=== PATIENT | male | born 2000 | race American Indian/Alaskan Native ===

== ENCOUNTER 2019-04-03 21:53 | Emergency (ER) | payer OTHER ==
[2019-04-04] MEDS ORDERED: LET TOPICAL (LIDOCAINE/EPINEPHRINE/TETRACAINE) 3 ML TP ONE (03:47)
[2019-04-04] MEDS ORDERED: LIDOCAINE-MPF (1%) 10 MG/1 ML VIAL 5 ML INFILTRATI ONE (03:47)
[2019-04-04] MEDS ORDERED: TETANUS,DIPH,PERTUSS(ACELL) VACCINE 0.5 ML SYRINGE IM ONE (03:47)
[2019-04-04] MEDS ORDERED: SODIUM CHLORIDE 0.9% 1000 ML 1,000 ML IV ONE (03:47)
--- NOTE | 2019-04-04 04:20 | Cat Scan Report ---
Examination: CT of the head without contrast Clinical information: Syncope. Fall. Comparison: None Technical: Multiple axial CT images of the head were obtained without intravenous contrast. Sagittal and coronal reformats were obtained. All CTs at this facility utilize dose reduction techniques inc luding automated exposure control, iterative reconstruction and weight based dosing when appropriate to reduce patient radiation dose to as low as reasonable achievable. Findings: There is no CT evidence of acute intracranial hemorrhage or large territorial infarct. The ventricular system is normal in size. No extra-axial fluid collections are identified. Evaluation of the calvarium demonstrates no evidence of acute bony abnormality. There is minimal muco taqueria thickening of ethmoid air cells. Impression: 1. No CT evidence of acute intracranial process. Signer Name: Nicki Avila MD Signed: 04/04/2019 4:16 AM Workstation Name: [email or web address]
[2019-04-04 04:30] LABS: Basophils % (Auto) 0.3 % (0.0-1.8); Eosinophils % (Auto) 0.3 % (0.0-4.3); Hematocrit 46.3 % (35.5-45.6); Hemoglobin 15.7 gm/dl (11.8-15.2); Lymphocytes # (Auto) 1.9 K/mm3 (1.2-5.4); Lymphocytes % (Auto) 24.2 % (13.4-35.0); Mean Corpuscular HGB Conc 34 % (32-34); Mean Corpuscular Volume 89 fl (84-94); Monocytes # (Auto) 0.6 K/mm3 (0.0-0.8); Monocytes % (Auto) 7.4 % (0.0-7.3); Platelet Count 188 K/mm3 (140-440); Red Blood Count 5.23 M/mm3 (3.65-5.03); Red Cell Distribution Width 13.2 % (13.2-15.2)
--- NOTE | 2019-04-04 04:31 | XRay Report ---
CHEST 2 VIEWS, 04/04/2019 4:08 AM INDICATION: Syncope COMPARISON: None FINDINGS: Support devices: None Heart: Cardiac silhouette is normal in size. Lungs/pleura: The lungs are well expanded and appear clear. Additional findings: Evaluation of bony structures demonstrates no evidence of acute bony abnormality . IMPRESSION: 1. No evidence of acute cardiopulmonary process. Signer Name: Nicki Avila MD Signed: 04/04/2019 4:26 AM Workstation Name: [email or web address]
[2019-04-04 04:46] LABS: Alanine Aminotransferase 15 units/L (7-56); Albumin 4.7 g/dL (3.9-5); BUN/Creatinine Ratio 16; Blood Urea Nitrogen 13 mg/dL (9-20); Hemolysis Index 13
--- NOTE | 2019-04-04 06:20 | Emergency Department Report ---
ED General Adult HPI - General Chief complaint: Syncope Stated complaint: LACERATION ABOVE RT EYE Source: patient Mode of arrival: Ambulatory Limitations: No Limitations - History of Present Illness Initial comments: Patient is a 19-year-old [place] male with no past medical history presents to the ED with content of acute onset persistent severe headache and a bleeding right supraorbital laceration after he developed acute onset single syncope episode about 4 hours ago. Patient states that he was standing at the kitchen table when he suddenly developed acute onset severe diffuse sharp abdominal pain, which startled him and he started walking to was the couch but syncopized on his way to the couch and in the process hit his head against the edge of the coffee table about 4 hours ago. Patient states that the syncope event was observed by the family members who also reiterate that the patient had a brief loss of consciousness but regained his level consciousness immediately after the syncope event. The family states that the patient did not have any urinary inco ntinence during the syncope event. Patient denies nausea, vomiting, dizziness, chest pain, shortness of breath, fever, chills, vision loss, numbness and tingling or weakness of upper and lower extremities bilaterally, diarrhea, or neck pain. MD Complaint: right supraorbital bleeding laceration; lightheadedness; syncope; headache -: Sudden, hour(s) (3) Location: face Radiation: non-radiation Severity scale (0 -10): 4 Quality: aching, sharp Consistency: constant Improves with: none Worsens with: none Associated Symptoms: denies other symptoms, headaches, syncope. denies: confusion, chest pain, cough, diaphoresis, fever/chills, loss of appetite, malaise, nausea/vomiting, rash, seizure, shortness of breath, other Treatments Prior to Arrival: none - Related Data Previous Rx's Medication Instructions Recorded Last Taken Type Ibuprofen [Motrin] 600 mg PO Q8H PRN #24 tablet 04/04/19 Unknown Rx Sulfamethoxazole/Trimethoprim 1 each PO Q12H #20 tablet 04/04/19 Unknown Rx [Bactrim DS TAB] Allergies Allergy/AdvReac Type Severity Reaction Status Date / Time No Known Allergies Allergy Unverified 04/03/19 23:10 ED Review of Systems ROS: Stated complaint: LACERATION ABOVE RT EYE Other details as noted in HPI Constitutional: malaise. denies: chills, fever Eyes: other (right supraorbital bleeding laceration). denies: eye pain, eye d ischarge, vision change ENT: denies: ear pain, throat pain Respiratory: denies: cough, shortness of breath, wheezing Cardiovascular: denies: chest pain, palpitations Endocrine: no symptoms reported Gastrointestinal: denies: abdominal pain, nausea, diarrhea Genitourinary: denies: urgency, dysuria Musculoskeletal: denies: back pain, joint swelling, arthralgia Skin: other (right supraorbital bleeding laceration). denies: rash, lesions Neurological: headache. denies: weakness, paresthesias Psychiatric: denies: anxiety, depression Hematological/Lymphatic: denies: easy bleeding, easy bruising ED Past Medical Hx - Past Medical History Previous Medical History?: No - Medications Home Medications: Home Medications Medication Instructions Recorded Confirmed Last Taken Type Ibuprofen [Motrin] 600 mg PO Q8H PRN #24 tablet 04/04/19 Unknown Rx Sulfamethoxazole/Trimethoprim 1 each PO Q12H #20 tablet 04/04/19 Unknown Rx [Bactrim DS TAB] ED Physical Exam - General Limitations: No Limitations General appearance: alert, in no apparent distress - Head Head exam: Present: other (bleeding right supraorbital 4 cm laceration) - Eye Eye exam: Present: normal appearance, PERRL, EOMI, other (right supraorbital bleeding 4 cm laceration) Pupils: Present: normal accommodation - ENT ENT exam: Present: normal exam, normal orophraynx, mucous membranes moist, TM's normal bilaterally, normal external ear exam - Neck Neck exam: Present: normal inspection, full ROM. Absent: tenderness, lymphadenopathy - Respiratory Respiratory exam: Present: normal lung sounds bilaterally. Absent: respiratory distress, wheezes, chest wall tenderness, accessory muscle use, decreased breath sounds - Cardiovascular Cardiovascular Exam: Present: regular rate, normal rhythm, normal heart sounds. Absent: systolic murmur, diastolic murmur, rubs, gallop - GI/Abdominal GI/Abdominal exam: Present: soft, normal bowel sounds. Absent: tenderness, guarding - Extremities Exam Extremities exam: Present: normal inspection, full ROM, normal capillary refill - Back Exam Back exam: Present: normal inspection, full ROM. Absent: muscle spasm, paraspinal tenderness - Neurological Exam Neurological exam: Present: alert, oriented X3, CN II-XII intact, normal gait, reflexes normal - Psychiatric Psychiatric exam: Present: normal affect, normal mood - Skin Skin exam: Present: warm, dry, normal color, rash, other (bleeding right supraorbital 4 cm laceration) ED Course Vital Signs 04/03/19 22:24 Temperature 98.4 F Pulse Rate 89 Respiratory 18 Rate Blood Pressure 127/82 O2 Sat by Pulse 100 Oximetry - Laceration /Wound Repair Right Face Wound Location: face (right supraorbital bleeding laceration) Wound Length (cm): 4 Wound's Depth, Shape: superficial, linear Wound Explored: contaminated Irrigated w/ Saline (ccs): 50 Betadine Prep?: Yes Anesthesia: 1% Lidocaine Volume Anesthetic (ccs): 5 Wound Debrided: extensive Wound Repaired With: sutures Suture Size/Type: 5:0, proline Number of Sutures: 9 Layer Closure?: No Sterile Dressing Applied?: No Progress: The patient tolerated the procedure well. Patient was discharged home on pain medications and oral antibiotics prophylactically and was advised to return to the ED or to his primary care physician in 8-10 days for suture removal or return to the ED immediately if symptoms get worse. ED Medical Decision Making - Lab Data Result diagrams: 04/04/19 04:11 04/04/19 04:11 - EKG Data EKG shows normal: sinus rhythm Rate: normal - EKG Data Interpretation: normal EKG 04/04/19 06:52 EKG shows normal sinus rhythm with ventricular rate of [address] or T- wave abnormalities - Radiology Data Radiology results: report reviewed, image reviewed Chest x-ray shows no acute cardiopulmonary abnormalities or pneumonitis. Head CT scan without contrast shows no acute intracranial abnormalities or he morrhage - Medical Decision Making This is a 19-year-old male with no past medical history presented to the ED with acute onset persistent headache after he had a single episode of syncope with brief loss of consciousness and which resulted in right supraorbital bleeding l aceration. In the ED, patient is alert and oriented 3 and is not in distress. Patient was treated for pain and also received tetanus booster vaccination. The EKG shows normal sinus rhythm with ventricular rate of 67 bpm and no acute ST or T-wave abnormalities. The head CT scan without contrast shows no acute intracranial abnormalities or hemorrhage. The chest x-ray shows no acute cardiopulmonary abnormalities or pneumonitis. Lab test results were reviewed and are all nonactionable including troponin. The patient's right supraorbital bleeding laceration was cleaned thoroughly and local anesthetic applied to be wound. The wound was sutured per protocol and the patient tolerated the pr ocedure well. The patient's symptoms of syncope was more vasovagal as the patient had a severe acute onset diffuse abdominal pain and then after developed a single syncope episode. Patient was discharged home on pain medications and prophylactic antibiotics and advised to follow-up with his primary care physician in 8-10 days for reevaluation or return to the ED immediately if symptoms get worse. Patient was otherwise advised to return to the ED or to his primary care physician in 8-10 days for suture removal. - Differential Diagnosis syncope; head injury; laceration; seizures Critical care attestation.: If time is entered above; I have spent that time in minutes in the direct care of this critically ill patient, excluding procedure time. ED Disposition Clinical Impression: Syncope, vasovagal, Acute post-traumatic headache, not intractable Contusion of face Qualifiers: Encounter type: initial encounter Qualified Code(s): S00.83XA - Contusion of other part of head, initial encounter Contusion of scalp Qualifiers: Encounter type: initial encounter Qualified Code(s): S00.03XA - Contusion of scalp, initial encounter Disposition: TO HOME OR SELFCARE Is pt being admited?: No Does the pt Need Aspirin: No Condition: Stable Instructions: Suture Care (ED), Laceration (ED), Syncope (ED), Acute Headache (ED), Lightheadedness (ED) Additional Instructions: Take medication with food, drink plenty of fluids and follow-up with your primary care physician in 7-10 days for reevaluation. Return to the emergency department in 10 days for suture removal. Otherwise return to the ED i mmediately if symptoms get worse. Prescriptions: Sulfamethoxazole/Trimethoprim [Bactrim DS TAB] 1 each PO Q12H #20 tablet Ibuprofen [Motrin] 600 mg PO Q8H PRN #24 tablet PRN Reason: Pain Referrals: [facility] [Outside] - 3-5 Days Time of Disposition: 06:20 Print Language: COMORAN
[2019-04-04 07:02] VITALS: BP 122/68
== END 2019-04-04 07:02 | disposition home or self-care (01) ==
LOC: ED 21:53
DX: S05.41XA Penetrating wound of orbit with or without foreign body, right eye, initial encounter (principal); S00.03XA Contusion of scalp, initial encounter; R55 Syncope and collapse; G44.319 Acute post-traumatic headache, not intractable; R10.84 Generalized abdominal pain; W18.30XA Fall on same level, unspecified, initial encounter; Y93.89 Activity, other specified; Y92.89 Other specified places as the place of occurrence of the external cause; Y99.8 Other external cause status
CPT/HCPCS: 12052; 36415; 70450; 71046; 80053; 84484; 85025; 90471; 90715; 93005; 93010; 96360; 99284; J7030